=== PATIENT | female | born 1960 | race Caucasian/White ===

== ENCOUNTER 2020-12-12 08:37 | Outpatient (CLI) | payer BC | END 2020-12-12 08:38 | disposition critical access hospital (66) | LOC: EMS 08:37 | DX: R42 Dizziness and giddiness (principal) | CPT/HCPCS: A0425; A0427 ==

== ENCOUNTER 2020-12-12 09:05 | Emergency (ER) | payer BC ==
[2020-12-12 09:29] VITALS: BP 121/103
--- NOTE | 2020-12-12 09:50 | ED Physician Documentation ---
PD HPI FOCAL NEURO - Stated complaint Stated Complaint: N/V/D - Chief complaint Chief Complaint: Neuro - History obtained from History obtained from: Patient - Treatment prior to arrival Treatment prior to arrival: 60-year-old woman had a 45-minute episode of severe vertigo at spinning vertigo this morning. Is 100% gone now. No associated headache or other focal neurologic symptom. Associated with vomiting. She is not nauseous now. Review of Systems Ten Systems: 10 systems reviewed and negative Constitutional: reports: Reviewed and negative Eyes: reports: Reviewed and negative Ears: reports: Reviewed and negative Nose: reports: Reviewed and negative PD PAST MEDICAL HISTORY - Present Medications Home Medications: Ambulatory Orders Medication Instructions Recorded Confirmed Meclizine HCl [Motion Sickness] 25 mg PO Q6H PRN #10 tablet 12/12/20 - Allergies Allergies/Adverse Reactions: Allergies Allergy/AdvReac Type Severity Reaction Status Date / Time No Known Drug Allergies Allergy Verified 12/12/20 09:25 PD ED PE NORMAL - Vitals Vital signs reviewed: Yes - General General: Alert and oriented X 3, No acute distress - HEENT HEENT: PERRL, EOMI, Other (TMs are normal. No nystagmus at this juncture. I am unable to recreate the vertigo with [place]-Hallpike maneuver.) - Neck Neck: Supple, no meningeal sign, No bony TTP - Derm Derm: Normal color, Warm and dry - Neuro Neuro: Alert and oriented X 3, intervention nurse 2-12 intact, No motor deficit, No sensory deficit, Normal speech, Other (NIH stroke scale of 0) Results - Vitals Vitals: Vital Signs - 24 hr 12/12/20 09:20 Temperature 37.0 C Heart Rate 78 Respiratory 19 Rate Blood Pressure 121/103 H O2 Saturation 100 Oxygen O2 Source Room air PD MEDICAL DECISION MAKING - ED course ED course: 60-year-old woman with transient vertigo, now completely gone. This is consistent with BPPV and she was counseled on the diagnosis. Departure - Departure Disposition: 01 Home, Self Care Clinical Impression: BPPV (benign paroxysmal positional vertigo) Qualifiers: Laterality: unspecified laterality Qualified Code(s): H81.10 - Benign paroxysmal vertigo, unspecified ear Condition: Good Record reviewed to determine appropriate education?: Yes Instructions: Vertigo Paroxysmal Positional Prescriptions: Meclizine HCl [Motion Sickness] 25 mg PO Q6H PRN #10 tablet PRN Reason: Dizziness Comments: You were seen today for a classic episode of BPPV which thankfully is resolved. Return for new or worsening symptoms. Follow-up with your primary care physician. If it were to return you can take the medication and return if it does not work. You can also try what is known as the "Genaro maneuver." You can look this up on the Internet. #
== END 2020-12-12 10:07 | disposition home or self-care (01) ==
LOC: ED 09:05
DX: H81.10 Benign paroxysmal vertigo, unspecified ear (principal)
CPT/HCPCS: 99283; 99284